=== PATIENT | female | born 2000 | race Caucasian/White ===

== ENCOUNTER 2023-11-07 13:56 | Outpatient (REF) | payer MEDICAID, SELFPAY ==
[2023-11-07 17:05] LABS: CT PCR NOT DETECTED (Not Detect.); NG PCR NOT DETECTED (Not Detect.)
== END 2023-11-07 13:57 | disposition home or self-care (01) ==
LOC: HO.CHCLNP 13:56
PROVIDERS: Visit Provider Advanced Practice Midwife
DX: Z11.3 Encounter for screening for infections with a predominantly sexual mode of transmission (principal)
CPT/HCPCS: 0353U

== ENCOUNTER 2024-01-03 16:39 | Emergency (ER) | payer MEDICAID, SELFPAY ==
--- NOTE | ~2024-01-03 | US_ITS ---
EXAMINATION: US OBSTETRICAL ULTRASOUND CLINICAL INFORMATION: Vaginal bleeding. Positive home test. COMPARISON: None available. LMP: 11/25/2023. Gestational age by maternal dates is 5 weeks 4 days. Estimated date of delivery by maternal dates is 08/31/2024. TECHNIQUE: Transabdominal and transvaginal imaging of pelvis is performed. FINDINGS: There is a single intrauterine gestational sac with visible yolk sac, embryo/fetus, and cardiac activity. There is no significant subchorionic hemorrhage or hematoma. HR: 80 beats per minute. CRL (crown rump length): 0.30 cm (6 weeks 0 days +/- 4 days). LUZ (estimated date of delivery): 08/28/2024 +/- 4 days. MATERNAL ADNEXA: The right maternal ovary measures 1.6 x 1.8 x 2.1 cm. No focal lesion The left maternal ovary measures 2.4 x 1.6 x 1.4 cm. No focal There is no significant maternal adnexal mass. No maternal pelvic ascites. Cervix is closed. US/US OB pelvic and transvaginal IMPRESSION: 1. Single intrauterine gestation with ultrasound gestational age of 6 weeks 0 days +/- 4 days. 2. Estimated date of delivery is 08/28/2024 +/- 4 days. 3. Low heart rate of 80 bpm. Recommend BUNGHOLE BORER correlation.
--- NOTE | ~2024-01-03 | US_ITS ---
EXAMINATION: US ABDOMEN LIMITED CLINICAL INFORMATION: Right upper quadrant pain.. COMPARISON: None available. TECHNIQUE: Real-time imaging of the right upper quadrant abdominal viscera. FINDINGS: PANCREAS: Normal. LIVER: Normal. The liver is normal in size. The liver contour is normal. Parenchymal echogenicity is normal. No focal hepatic lesion. There is no intrahepatic biliary duct dilatation seen. GALLBLADDER: Normal. The gallbladder is physiologically distended without evidence of stones, sludge, polyps, wall thickening or pericholecystic fluid. COMMON BILE DUCT: Normal in caliber measuring 0.2 cm in diameter. RIGHT KIDNEY: Normal. No hydronephrosis. No renal calculi or focal parenchymal lesions. The kidney measures 10.2 cm in maximum dimension. FREE FLUID: None. US/US abdomen limited IMPRESSION: Unremarkable limited right upper quadrant abdominal ultrasound.
[2024-01-03 16:49] VITALS: PULSE 106; RESP 16; TEMP 36.9; O2SAT 98; BMI 21.7
--- NOTE | 2024-01-03 16:52 | ED.GENADULT ---
HPI - General Adult General Chief complaint: Vaginal Bleeding Stated complaint: , bleeding Time Seen by Provider: 01/03/24 20:10 Related Data Allergies Allergy/AdvReac Type Severity Reaction Status Date / Time No Known Allergies Allergy Unverified 06/25/20 17:08 [No Known Allergies*] [facility] Social History Social History Advance Directives: No Advance Directives Information Provided: No Physical Exam ED Vital Signs: Vital Signs - 24 hr 01/03/24 16:49 Temperature 98.4 F Pulse Rate 106 H Respiratory Rate 16 Pulse Oximetry 98 Oxygen Delivery Method Room Air BMI result Body Mass Index 21.7 Course Course Course Narrative: This is an RME: Additional HPI, ROS, PE not included below will be deferred to primary provider. This is a 35-lbbh-mjl-female presenting to the emergency department with complaints of right upper quadrant pain since yesterday. Patient reports that the pain is intermittent. She also states that she took a at home test which was positive. She has never been before. No vaginal bleeding or suprapubic pain. She has tenderness palpation of the right upper quadrant. Last menstrual cycle was November 30, 2023. Endorsing diarrhea, no vomiting or nausea. No urinary symptoms. Further ER evaluation needed. Patient reports that she did have vaginal bleeding but now has since stopped. Plan: Labs, right upper quadrant ultrasound, UA, ultrasound OB Reevaluation(s) Reevaluation #1: pt left without completing treatment. Medical Decision Making Lab Data 01/03/24 17:30 01/03/24 17:30 Labs: Lab Results 01/03/24 Range/Units 17:30 WBC 5.2 (4.8-10.8) X10*3/uL RBC 4.60 (4.20-5.50) X10*6/uL Hgb 13.8 (12.0-16.0) g/dl Hct 41.1 (37.0-47.0) % MCV 89.3 (80.0-98.0) fL MCH 30.0 (27.0-33.0) pg MCHC 33.6 (31.0-35.0) g/dl RDW 11.8 (11.0-16.0) % Plt Count 216 (160-400) X10*3/uL MPV 10.4 (9.4-12.3) fL Immature Gran % (Auto) Cancelled Neut % (Auto) Cancelled Lymph % (Auto) Cancelled Garland % (Auto) Cancelled Eos % (Auto) Cancelled Baso % (Auto) Cancelled Lymph # (Auto) Cancelled Garland # (Auto) Cancelled Eos # (Auto) Cancelled Baso # (Auto) Cancelled Abs Immat Gran (auto) Cancelled Absolute Neuts (auto) Cancelled Absolute Nucleated RBC 0.000 (0.0-0.012) X10*3/uL Nucleated RBC % (auto) 0.0 (0.0-0.2) /100WBC Neutrophils % (Manual) 54 (45-73) % Band Neutrophils % 0 L (3-5) % Lymphocytes % (Manual) 30 (20-40) % Atypical Lymphs % (Man) 9 H (0-6) % Monocytes % (Manual) 2 (2-11) % Eosinophils % (Manual) 1 (0-4) % Metamyelocytes % 1 % Plasma Cell % (Manual) 3 % Abs Neuts (Manual) 2.8 (2.0-8.3) X10*3/uL Lymphocytes # (Manual) 1.6 (1.2-4.9) X10*3/uL Atyp Lymphs # (Manual) 0.5 x10*3/uL Monocytes # (Manual) 0.1 (0.1-1.2) X10*3/uL Eosinophils # (Manual) 0.1 (0.0-0.4) X10*3/uL Metamyelocytes # 0.1 X10*3/uL Plasma Cell # (Manual) 0.2 X10*3/uL Dohle Bodies PRESENT Platelet Estimate NORMAL (NORMAL) Plt Morphology Comment NORMAL RBC Morphology NORMAL Sodium 137 (135-145) mmol/L Potassium 3.7 (3.3-5.1) mmol/L Chloride 111 H (96-108) mmol/L Carbon Dioxide 18 L (22-29) mmol/L Anion Gap 12 (12-20) BUN 8 L (9-16) mg/dL Creatinine 0.59 (0.5-1.4) mg/dL Estim Creat Clear Calc 119.3 Estimated GFR > 60 Random Glucose 81 (60-115) mg/dL Calcium 9.4 (8.4-10.2) mg/dL Magnesium 1.9 (1.6-2.6) mg/dL Total Bilirubin 0.4 (0.0-1.0) mg/dL Direct Bilirubin 0.2 (0.0-0.5) mg/dL AST 18 (5-31) U/L ALT 10 (0-31) U/L Alkaline Phosphatase 58 (39-117) U/L Total Protein 7.7 (6.5-8.0) g/dL Albumin 4.5 (3.5-5.0) g/dL Lipase 23 (8-78) U/L Beta HCG, Quant 76898 mIU/mL Blood Type B Positive Discharge Plan Discharge Clinical Impression: Abdominal pain Patient Disposition: Left W/O Completing Treatment Discharge Date/Time: 01/03/24 20:41
[2024-01-03 17:39] LABS: Hematocrit 41.1 % (37.0-47.0); Hemoglobin 13.8 g/dl (12.0-16.0); Mean Corpuscular HGB Conc 33.6 g/dl (31.0-35.0); Mean Corpuscular Volume 89.3 fL (80.0-98.0); Mean Platelet Volume 10.4 fL (9.4-12.3); Platelet Count 216 X10*3/uL (160-400); Red Cell Distribution Width 11.8 % (11.0-16.0); White Blood Count 5.2 X10*3/uL (4.8-10.8)
[2024-01-03 18:23] LABS: Atypical Lymph Absolute Manual 0.5 x10*3/uL; Atypical Lymphs Percent Manual 9 % (0-6); Eosinophils Absolute Manual 0.1 X10*3/uL (0.0-0.4); Eosinophils Percent Manual 1 % (0-4); Lymphocytes Absolute Manual 1.6 X10*3/uL (1.2-4.9); Lymphocytes Percent Manual 30 % (20-40); Metamyelocytes Absolute 0.1 X10*3/uL; Metamyelocytes Percent 1 %; Monocytes Absolute Manual 0.1 X10*3/uL (0.1-1.2); Monocytes Percent Manual 2 % (2-11); Neutrophils Percent Manual 54 % (45-73); Plasma Cells % 3 %; Plasma Cells Absolute Manual 0.2 X10*3/uL
[2024-01-03 18:27] LABS: Band Neutrophils Percent 0 % (3-5); Dohle Bodies PRESENT; Neutrophils Absolute Manual 2.8 X10*3/uL (2.0-8.3); Platelet Estimate NORMAL (NORMAL); Platelet Morphology Comment NORMAL; RBC Morphology NORMAL
[2024-01-03 18:35] LABS: Alanine Aminotransferase 10 U/L (0-31); Albumin Level 4.5 g/dL (3.5-5.0); Alkaline Phosphatase 58 U/L (39-117); Anion Gap 12 (12-20); Aspartate Amino Transferase 18 U/L (5-31); Bilirubin Direct 0.2 mg/dL (0.0-0.5); Bilirubin Total 0.4 mg/dL (0.0-1.0); Blood Urea Nitrogen 8 mg/dL (9-16); Calcium 9.4 mg/dL (8.4-10.2); Carbon Dioxide 18 mmol/L (22-29); Chloride 111 mmol/L (96-108); Creatinine Clr Calc Pharmacy 119.3; Estimated Glomerular Filt Rate > 60; Glucose Random 81 mg/dL (60-115); Lipase 23 U/L (8-78); Magnesium 1.9 mg/dL (1.6-2.6); Potassium 3.7 mmol/L (3.3-5.1); Sodium 137 mmol/L (135-145); Total Protein 7.7 g/dL (6.5-8.0)
[2024-01-03 18:55] LABS: HCG Quantitative 15759 mIU/mL
== END 2024-01-03 20:41 | disposition left against medical advice (07) ==
PROVIDERS: Physician Assistant Medical; Emergency Provider Emergency Medicine; PCP Pediatrics
DX: O20.9 Hemorrhage in early pregnancy, unspecified (principal); Z3A.01 Less than 8 weeks gestation of pregnancy; R10.11 Right upper quadrant pain
CPT/HCPCS: 36415; 76705; 76801; 76817; 80048; 80076; 83690; 83735; 84702; 85007; 85027; 86900; 86901; 99281; 99284

== ENCOUNTER 2024-02-07 11:53 | Outpatient (REF) | payer MEDICAID, SELFPAY ==
--- NOTE | ~2024-02-07 | US_ITS ---
EXAMINATION: US OBSTETRICAL FOLLOW UP CLINICAL INFORMATION: with inconclusive viability. Low heart rate on previous ultrasound of 01/03/2024. COMPARISON: Ultrasound of 01/03/2020. TECHNIQUE: Real time transabdominal imaging with color and M-mode Doppler. FINDINGS: LMP: 11/25/2023. Gestational age by maternal dates is 10 weeks 4 days. Estimated date of delivery by maternal dates is 08/31/2024. Estimated date of delivery by initial dating ultrasound of 01/03/2024 is 08/28/2024 which would project current gestational age to be 11 weeks. There is a single intrauterine gestational sac with visible yolk sac, fetus, and cardiac activity. There is no significant subchorionic hemorrhage or hematoma. HR: 169 beats per minute. CRL (crown rump length): 3.71 cm (10 weeks 5 days +/- 4 days). LUZ (estimated date of delivery): 08/30/2024 +/- 4 days. MATERNAL ADNEXA: The right maternal ovary measures 2.2 x 1.1 x 1.1 cm. The ovary is unremarkable. The left maternal ovary measures 2.5 x 1.2 x 1.3 cm. The ovary is unremarkable. There is no significant maternal adnexal mass. No maternal pelvic ascites. US/US OB follow up IMPRESSION: 1. Single intrauterine gestation with ultrasound gestational age of 10 weeks 5 days +/- 4 days. 2. Estimated date of delivery is 08/30/2024 +/- 4 days. 3. No maternal adnexal mass or pelvic ascites.
== END 2024-02-07 11:54 | disposition home or self-care (01) ==
LOC: HO.US 11:53
PROVIDERS: Visit Provider Obstetrics & Gynecology
DX: O36.80X0 Pregnancy with inconclusive fetal viability, not applicable or unspecified (principal)
CPT/HCPCS: 76816

== ENCOUNTER 2024-02-08 12:39 | Outpatient (AMB) | payer MEDICAID, SELFPAY ==
[2024-02-08 12:50] VITALS: BP 106/70; BMI 21.6
--- NOTE | 2024-02-08 12:50 | A.OFFVIS_ITS ---
Vital Signs 02/08/24 12:50 Height 5 ft 2 in Weight 118 lb BMI 21.6 BP 106/70 Intake Visit Reasons: U/S results Power Saw Mechanic Required: No Accompanied by: Significant Other Allergies No Known Allergies [No Known Allergies*] Allergy (Verified 02/08/24 12:52) Is last menstrual period known: No Post menopausal: No Patient : Yes HPI Comments Details: Presenting for ER follow-up with no complaints, no pelvic cramping and or bleeding. Ultrasound done today, no report available yet, unofficial reading showed the following Intrauterine at 10 weeks and 4 days of gestation by LMP and 10 weeks and 5 days of gestation by ultrasound with gestational sac yolk sac present positive heart rate 169 beats per minute with no other abnormality On vitamin 1 tablet p.o. q.d. [facility] Family History (Updated 02/08/24 @ 12:54 by FLORA Alcantara) Maternal Grandmother Breast cancer Mother Uterine cancer Maternal Aunt Breast cancer Social History Patient : Yes Female Reproductive History Menstrual Age of Menarche: 13 Duration of menses: 6-7 days control method: none Total pregnancies: 0 Review of Systems Const All systems reviewed & are unremarkable except as noted in HPI and below Reports as per HPI and Reports no additional complaints GI Reports no additional complaints Reports no additional complaints Physical Exam Vital Signs: Last Vital Signs BP 106/70 02/08/24 12:50 BMI result Body Mass Index 21.6 Assessment & Plan Assessment & Plan (1) Early stage of : Code(s): Z34.90 - Encounter for supervision of normal , unspecified, unspecified trimester Category: Medical Plan: Discussed with the patient the finding on ultrasound showing, an IUP viable EDC 08/28 12/30. SAB warnings given to patient, she is to call or go to emergency room in case of pelvic cramping and or bleeding. vitamin 1 tablet p.o. q.d. sent to the patient's pharmacy Instructions given to patient to schedule initial OB visit kyle, the patient is interested in going to [facility] OBGYN practice. Medications: New no.144-folic acid 400 mcg 1 tab PO DAILY 180 days 180 tabs 1RF Coding Level of Care Code New Pt Level 3 (16529) Diagnoses Early stage of Z34.90
== END 2024-02-08 14:43 | disposition home or self-care (01) ==
PROVIDERS: PCP Pediatrics; Referring Provider Pediatrics; Visit Provider Obstetrics & Gynecology
DX: Z34.90 Encounter for supervision of normal pregnancy, unspecified, unspecified trimester (principal)
CPT/HCPCS: 99203

== ENCOUNTER → 2024-02-08 12:39 | Outpatient (BNVA) | payer MEDICAID, SELFPAY | PROVIDERS: PCP Pediatrics; Visit Provider Obstetrics & Gynecology | DX: Z34.91 Encounter for supervision of normal pregnancy, unspecified, first trimester (principal); Z3A.10 10 weeks gestation of pregnancy | CPT/HCPCS: 99202 ==

== ENCOUNTER 2024-09-09 19:04 | Outpatient (REF) | payer MEDICAID, SELFPAY ==
[2024-09-10 05:44] LABS: CT PCR NOT DETECTED (Not Detect.); NG PCR NOT DETECTED (Not Detect.)
== END 2024-09-09 19:05 | disposition home or self-care (01) ==
LOC: HO.HHCLNP 19:04
PROVIDERS: Visit Provider Nurse Practitioner Family
DX: Z20.2 Contact with and (suspected) exposure to infections with a predominantly sexual mode of transmission (principal)
CPT/HCPCS: 87491; 87591

== ENCOUNTER 2025-08-07 17:20 | Outpatient (REF) | payer MEDICAID, SELFPAY ==
--- OUTSIDE RECORDS SUMMARY | 2025-08-07 14:15 | XMS_ITS | Encounter Summary ---
Author Organization [employer] Address [address] [facility] [address] [place] [address] Care Team Providers Care Enterprise Applications Manager Name Role Phone Kristel Becerra MD Primary Care Pro vider Encounter Details Date Type Department Care Team (Latest Contact Info) Description 08/07/2025 2:15 PM EDT Procedure Visit [facility] [address] [place] [address] Meli Amin, LOYDA [address] [place] [address] Nexplanon insertion (Primary Dx); Encntr screen for infections w sexl mode of transmiss Social History Tobacco Use Types Packs/Day Years Used Date Smoking Tobacco: Never Passive Smoke Exposure: Never Smokeless Tobacco: Never Alcohol Use Standard Drinks/Week Comments Not Asked 0 (1 standard drink = 0.6 oz pur e alcohol) social Depression Answer Date Recorded Patient Health Questionnaire-9 Score 6 08/07/2025 Patient Health Questionnaire-9 Score 6 08/07/2025 Last PHQ-9: Questionnaire Data Not on file 1 Housing Stability Answer Date Recorded What is your housing situation today? I have tenzin conte 08/07/[address] you li ve. Do you have problems with any of the following? I am not sure 08/07/2025 Food Insecurity Answer Date Recorded Within the past 12 months, y ou worried that your food would run out before you got money to buy more: Never True 08/30/2024 Within the past 12 months,th e food you bought just didn't last and you didn't have enough money to get more: Never True Transportation Answer Date Recorded In the past 12 months, has l ack of transportation kept you from medical appts, meetings, work or from getting things needed for daily living? No 08/30/2024 Utilities Answer Date Recorded In the past 12 months, has t he electric, gas, oil or water company threatened to shut off services in your home? No 08/30/2024 Depression Answer Date Recorded Patient Health Questionnaire-2 Score 0 08/07/2025 Internet Access Answer Date Recorded Internet Access Q1 Yes 08/30/2024 Internet Access Q2 Not on file 08/30/2024 Comments Unknown Intention Date Recorded No desire to become (finding) 1 Sex and Gender Information Value Date Recorded Sex Assigned at Female 08/08/2022 10:21 AM EDT Legal Sex Female 10:21 AM EDT Gender Identity Female 08/08/2022 10:21 AM EDT Sexual Orientation Bisexual 02/24/2023 11 :01 AM EDT documented as of this encounter Last Filed Vital Signs Vital Sign Reading Time Taken Comments Blood Pressure 128/80 08/07/2025 2:36 PM EDT Pulse 82 08/07/2025 2:36 PM EDT Temperature - - Respiratory Rate 21 08/07/2025 2:36 PM EDT Oxygen Saturation 98% 08/07/2025 2:36 PM EDT Inhaled Oxygen Concentration - - Weight 67.8 kg (149 lb 6.4 oz) 08/07/2025 2:36 P M EDT Height 157.5 cm (5' 2 ) 08/07/2025 2:36 PM EDT Body Mass Index 27.33 08/07/2025 2:36 PM EDT documented in this encounter Functional Status * Over the past 2 weeks, how often have you been bothered by any of the following problems? Question Answer Date of Assessment Author Patient Health Questionnaire -2 Score 0 08/07/2025 3:05 PM EDT Kurt Weldon MA * Little interest or pleasure in doing things Answer Date of Assessment Author Not at all 08/07/2025 3:05 PM EDT Kurt Weldon MA * Feeling down, depressed, or hopeless Answer Date of Assessment Author Not at all 08/07/2025 3:05 PM EDT Kurt Weldon MA * Trouble falling or staying asleep, or sleeping too much Answer Date of Assessment Author Several days 08/07/2025 3:05 PM EDT Kurt Weldon MA * Feeling tired or having little energy Answer Date of Assessment Author More than half the days 08/07/2025 3:05 PM EDT Kurt Burkett MA * Poor appetite or overeating Answer Date of Assessment Author Several days 08/07/2025 3:05 PM EDT Kurt Weldon MA * Feeling bad about yourself - or that you are a failure or have let yourself or your family down Answer Date of Assessment Author Not at all 08/07/2025 3:05 PM EDT Kurt Weldon MA * Trouble concentrating on things, such as reading the newspaper or watching television Answer Date of Assessment Author Not at all 08/07/2025 3:05 PM LUIZAT Kurt Weldon MA * Moving or speaking so slowly that other people could have noticed? Or the opposite - being so fidgety or restless that you have been moving around a lot more than usual. Answer Date of Assessment Author More than half the days 08/07/2025 3:05 PM EDT Kurt uBrkett MA * Thoughts that you would be better off or hurting yourself in some way Answer Date of Assessment Author Not at all 08/07/2025 3:05 PM LUIZAT Kurt Weldon MA * Patient Health Questionnaire-9 Score Answer Date of Assessment Author 6 08/07/2025 3:05 PM LUIZAT Kurt Weldon MA * How difficult have these problems made it for you to do your work, take care of things at home, or get along with other people? Answer Date of Assessment Author Somewhat difficult 08/07/2025 3:05 PM Kurt Saez MA documented as of this encounter Progress Notes * Meli Amin CNM - 08/07/2025 2:15 PM EDTAssociated Order(s): Insertion/Removal of Contraceptive Capsule Subjective Patient ID: Esme Caldera is a 24 y.o. female who presents for Nexplanon insertion Previous Nexplanon removed last year. Would like new implant today. Not planning in the next year. LMP 08/06/2025. test negative today. No contraindications to insertion. SVB 08/2024, Meghana. Pap NIL, Gonorrhea/Chlamydia neg 2023. Co-parenting with Meghana's father, going okay. Living with her mom. Has services, declines today. Review of Systems Objective BP 128/80 (BP Location: Left arm, Patient Position: Sitting, BP Cuff Size: Adult) Pulse 82 Resp21 Ht 5' 2 (1.575 m) Wt 149 lb 6.4 oz (67.8 kg) LMP 08/06/2025 (Exact Date) SpO2 98% BMI27.33 kg/m?? Physical Exam Constitutional: Appearance: Normal appearance. Neurological: Mental Status: She is alert. Psychiatric: Mood and Affect: Mood normal. Behavior: Behavior normal. Assessment/Plan Diagnoses and all orders for this visit: Nexplanon insertion - POCT , urine manually resulted Reviewed normal side effects and danger signs. Report arm pain, redness, heavy bleeding. Leave pressure dressing on for 24h, Band-Aid for 3-5days. Expect irregular bleeding, or less likely, no bleeding at all. Report if implant not palpable. Return in 4wks for follow up. Advised to use additional control for 7 days. 100% condoms encouraged for STI prevention. Reviewed that Nexplanon is FDA approved for 3y, but research supports extended use up to 5 years Insertion/Removal of Contraceptive Capsule Date/Time: 08/07/2025 2:30 PM Performed by: Meli Amin CNM Authorized by: Meli Amin CNM Confirmed correct patient, procedure, site, and patient consented: Yes Participating Staff: Meli Amin CNM Consent: Consent obtained: Verbal and written Consent given by: Patient Procedural risks and benefits discussed: Yes Patient questions answered: yes Patient agrees, verbalizes understanding, and wants to proceed: yes Instructions and paperwork completed: yes Branscomb Protocol: Patient states understanding of procedure being performed: yes Site marked: yes Indication: Indication: insertion of non-biodegradable drug delivery implant Pre-procedure: Pre-procedure timeout performed: yes Prepped with: povidone-iodine Local anesthetic: 2ml 2% lidocaine. The site was cleaned and prepped in a sterile fashion: yes Procedure: Procedure: Insertion Left/right: Left Preloaded contraceptive capsule trocar was placed subdermally: yes Visualization of implant was obtained: yes Contraceptive capsule was inserted and trocar removed: yes Visualization of notch in stylet and palpation of device: yes Palpation confirms placement by provider and patient: yes Site was closed with steri-strips and pressure bandage applied: yes OSM: 1 each etonogestrel-eluting 68 mg Encntr screen for infections w sexl mode of transmiss - Chlamydia/N. Gonorrhoeae, PCR, Urine Agrees to urine Gonorrhea/Chlamydia today. documented in this encounter Plan of Treatment Upcoming Encounters Date Type Department Care Team (Late st Contact Info) Description 09/09/2025 2:00 PM EST Office Visit [facility] [address] [place] [address] [phone] Meli Amin CNM [address] [place] [phone] 09/17/2025 9:45 AM EST Office Visit [facility] [address] [place] [phone] Kristel Becerra MD [address] [place] [address] [phone] Scheduled Orders Name Type Priority Associated Diagnoses Orde r Schedule Chlamydia/N. Gonorrhoeae, PCR, Urine Lab Routine Encntr screen for infections w sexl mode of transmiss Ordered: 08/07/2025 documented as of this encounter Procedures Procedure Name Priority Date/Time Associated Diagnosis Comments POCT , URINE Routine 08/07/2025 2:41 PM EDT Nexplanon insertion NM INSERTION DRUG DELIVERY IMPLANT Routine 08/07/2025 2:30 PM EDT Nexplanon insertion documented in this encounter Results * POCT , urine manually resulted (08/07/2025 2:41 PM EDT) Preg Test, Ur Negative Negative, Indeterminate, None Detected, Invalid, Specimen unsatisfactory for evaluation, Weakly Positive, 2+ QC Media Lot # [id number] Lot# Expiration Date Urine 08/07/2025 2:41 PM EDT Meli Amin CNM POINT OF CARE TEST ENTER/ EDIT ORDERABLES Final Result * NM INSERTION DRUG DELIVERY IMPLANT (08/07/2025 2:30 PM EDT) Narrative Meli Amin CNM - 08/07/2025 2:30 PM EDT Meli Amin CNM 08/07/2025 3:02 PM Insertion/Removal of Contraceptive Capsule Date/Time: 08/07/2025 2:30 PM Performed by: Meli Amin CNM Authorized by: Meli Amin CNM Confirmed correct patient, procedure, site, and patient consented: Yes Participating Staff: Meli Amin CNM Consent: Consent obtained: Verbal and written Consent given by: Patient Procedural risks and benefits discussed: Yes Patient questions answered: yes Patient agrees, verbalizes understanding, and wants to proceed: yes Instructions and paperwork completed: yes Branscomb Protocol: Patient states understanding of procedure being performed: yes Site marked: yes Indication: Indication: insertion of non-biodegradable drug delivery implant Pre-procedure: Pre-procedure timeout performed: yes Prepped with: povidone-iodine Local anesthetic: 2ml 2% lidocaine. The site was cleaned and prepped in a sterile fashion: yes Procedure: Procedure: Insertion Left/right: Left Preloaded contraceptive capsule trocar was placed subdermally: yes Visualization of implant was obtained: yes Contraceptive capsule was inserted and trocar removed: yes Visualization of notch in stylet and palpation of device: yes Palpation confirms placement by provider and patient: yes Site was closed with steri-strips and pressure bandage applied: yes OSM: 1 each etonogestrel-eluting 68 mg Meli Amin CNM IN CLINIC/BEDSIDE ORDERAB LES Final Result documented in this encounter Visit Diagnoses Diagnosis Nexplanon insertion- Primary Encntr screen for infections w sexl mode of transmiss documented in this encounter Administered Medications Inactive Administered Medications - up to 3 most recent administrations Medication Order MAR Action Action Date Dose Rate Site etonogestrel-eluting 68 mg contraceptive implant 1 each 1 each, Once PRN Procedure, Starting on Loni 08/07/25 at 1430, For 1 doseIndications:Nexplanon insertion Given 08/07/2025 2:30 PM EDT 1 each documented in this encounter Additional Health Concerns Assessment Noted Time PHQ-9 Depression Total Score: 6 08/07/20 25 3:05 PM EDT documented as of this encounter Care Teams Enterprise Applications Manager Relationship Specialty Start Date End Date Kristel Becerra MD [address] [place] [phone] PCP - General Internal Medicine 11/03/23 documented as of this encounter
--- OUTSIDE RECORDS SUMMARY | 2025-08-07 18:38 | XMS_ITS | Encounter Summary ---
Author Organization [employer] Address [address] [facility] [address] [place] [address] Care Team Providers Care Hydro Station Supervisor Name Role Phone Kristel Becerra MD Primary Care Pro vider Reason for Visit * Reason Onset Date Comments chart prep 08/06/2025 Encounter Details Date Type Department Care Team ([facility] st Contact Info) Description 08/06/2025 Telephone [facility] [address] [place] [address] Meli Amin CNM [address] [place] [phone] chart prep Social History Tobacco Use Types Packs/Day Years [...] Q2 Not on file 08/30/2024 Comments Unknown Sex and Gender Information Value Date Recorded Sex Assigned at Female 08/08/2022 10:21 AM EDT Legal Sex Female 10:21 AM EDT Gender Identity Female 08/08/2022 10:21 AM EDT Sexual Orientation Bisexual 02/24/2023 11 :01 AM EDT documented as of this encounter Miscellaneous Notes * Telephone Encounter - Sherrie Reyna MA - 08/06/2025 2:15 PM EDT ..Chart Prep Labs: not applicable Images: not applicable Vaccines due: Covid Due, PCV20 Due, and Flu Due Referrals: Not Applicable Screenings: LMP Overdue care gaps: Sbirt, SDOH, PHQ9, and Oral Health documented in this encounter Plan of Treatment Upcoming Encounters Date Type Department Care Team (Late st Contact Info) Description 09/09/2025 2:00 PM EST Office Visit [facility] [address] [place] [phone] Meli Amin CNM [address] [place] [phone] 09/17/2025 9:45 AM EST Office Visit [facility] [address] [place] [address] [phone] Kristel Becerra MD [address] [place] [phone] documented as of this encounter Visit Diagnoses Not on filedocumented in this encounter Additional Health Concerns Assessment Noted Time PHQ-9 Depression Total Score: 22 025 10:35 AM EDT documented as of this encounter Care Teams Hydro Station Supervisor Relationship Specialty Start Date End Date Kristel Becerra MD [address] [place] [phone] PCP - General Internal Medicine 11/03/23 documented as of this encounter
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
--- OUTSIDE RECORDS SUMMARY | 2025-08-07 18:39 | XMS_ITS | Encounter Summary ---
Author Organization [employer] Address [address] [facility] [address]t [place] [address] Care Team Providers Care Commercial Kitchen Service Technician Name Role Phone Kristel Becerra MD Primary Care Pro vider Encounter Details Date Type Department Care Team (Latest Contact Info) Description 08/07/2025 Travel Social History Tobacco Use Types Packs/Day Years [...] AM EDT documented as of this encounter Functional Status * Over the [...] 3:05 PM LUIZAT Kurt Weldon MA * Trouble concentrating on [...] 3:05 PM EDT Kurt Burkett MA * Thoughts that you would be better off or hurting yourself in some way Answer Date of Assessment Author Not at all 08/07/2025 3:05 PM EDT Kurt Weldon MA * Patient Health Questionnaire-9 Score Answer Date of Assessment Author 6 08/07/2025 3:05 PM EDT Kurt Weldon MA * How difficult have these problems made it for you to do your work, take care of things at home, or get along with other people? Answer Date of Assessment Author Somewhat difficult 08/07/2025 3:05 PM EDT Kurt Morris MA documented as of this encounter Plan of Treatment Upcoming Encounters Date Type Department Care Team (Late st Contact Info) Description 09/09/2025 2:00 PM EST Office Visit [facility] [address] [place] [phone] Meli Amin CNM [address] [place] [phone] 09/17/2025 9:45 AM EST Office Visit [address] [address] Kristel Becerra MD [address] [place] [phone] documented as of this encounter Visit Diagnoses Not on filedocumented in this encounter Additional Health Concerns Assessment Noted Time PHQ-9 Depression Total Score: 6 08/07/20 25 3:05 PM EDT documented as of this encounter Care Teams Commercial Kitchen Service Technician Relationship Specialty Start Date End Date Kristel Becerra MD [address] [place] [phone] PCP - General Internal Medicine 11/03/23 documented as of this encounter
--- OUTSIDE RECORDS SUMMARY | 2025-08-07 18:39 | XMS_ITS | Encounter Summary ---
Author Organization [employer] Address [address] [facility] 7t [place] [address] Care Team Providers Care Sharples Machine Operator Name Role Phone Brittni Cooper MD Primary Care Provider [phone] Kristel Becerra MD Primary Care Pro vider Reason for Visit * Reason Onset Date Comments Nurse Triage 10/18/2023 Encounter Details Date Type Department Care Team ([facility] st Contact Info) Description 10/18/2023 Telephone [facility] [address], [place] [phone] Brittni Cooper MD [address] [place] [address] Nurse Triage Social History Tobacco Use Types Packs/Day Years Used Date Smoking Tobacco: Never Passive Smoke Exposure: Never Smokeless Tobacco: Never Alcohol Use Standard Drinks/Week Comments Not Asked 0 (1 standard drink = 0.6 oz pur e alcohol) social Depression Answer Date Recorded Patient Health Questionnaire-9 Score 5 02/24/2023 Housing Stability Answer Date Recorded What is your housing situation today? I have tenzin conte 08/14/[address] you li ve. Do you have problems with any of the following? None of the above 08/14/2023 Food Insecurity Answer Date Recorded Within the past 12 months, y ou worried that your food would run out before you got money to buy more: Sometimes True 2022 Within the past 12 months,th e food you bought just didn't last and you didn't have enough money to get more: Sometimes True 08/14/2023 Transportation Answer Date Recorded In the past 12 months, has l ack of transportation kept you from medical appts, meetings, work or from getting things needed for daily living? No 08/14/2023 Utilities Answer Date Recorded In the past 12 months, has t he electric, gas, oil or water company threatened to shut off services in your home? No 08/14/2023 Depression Answer Date Recorded Patient Health Questionnaire-2 Score 1 02/24/2023 Comments No Sex and Gender Information Value Date Recorded Sex Assigned at Female 08/08/2022 10:21 AM EDT Legal Sex Female 10:21 AM EDT Gender Identity Female 08/08/2022 10:21 AM EDT Sexual Orientation Bisexual 02/24/2023 11 :01 AM EDT documented as of this encounter Miscellaneous Notes * Telephone Encounter - Jody Lopez RN - 10/18/2023 3:39 PM EST TC placed to patient at number provided: [phone]. Patient picked up. Patient stated she has had some vaginal bleeding consistently for the last two months, but it is much worse today. She is having heavy bleeding, cramping, and 6/10 pain today. She denies other symptoms. Cramping and pain diffuse in lower abdomen. Advised patient to go to the ED or WIC immediately. Patient does not want to go to the ED. Patient agreeable to go to the [place] and fairly sure she will go there this afternoon/evening. Helene Amin has a one-hour appointment open tomorrow morning, 10/18/23, if useful for this patient. For now, scheduled a follow up visit with Helene Amin for next week. Routing to PCP and WIC nurses so they are aware. * Telephone Encounter - Sepideh Gallardo RN - 10/18/2023 3:19 PM EST Triage call attempted x2 with [place] business area manager [place] [id number] Pt didn't answer left voice message to call [facility] [phone] * Telephone Encounter - Teofilo Dsouza - 10/18/2023 2:47 PM EST Symptom: Vaginal Bleeding - Not Outcome: Talk to a nurse or provider within 15 minutes Reason: Heavy bleeding The caller accepted this outcome Pt is on nexplanon Please contact pt @ [phone] documented in this encounter Plan of Treatment Upcoming Encounters Date Type Department Care Team (Late st Contact Info) Description 09/09/2025 2:00 PM EST Office Visit [address] [phone] Meli Amin CNM [address] [place] [address] 09/17/2025 9:45 AM EST Office Visit [address] [address] Kristel Becerra MD [address] [place] [phone] documented as of this encounter Visit Diagnoses Not on filedocumented in this encounter Additional Health Concerns Assessment Noted Time PHQ-9 Depression Total Score: 5 02/25/20 23 10:31 AM EDT documented as of this encounter Care Teams Sharples Machine Operator Relationship Specialty Start Date End Date Brittni Cooper MD [address] [place] [phone] PCP - General Family Medicine 07/28/22 11/02/23 Kristel Becerra MD [address] [place] [address] [phone] PCP - General Internal Medicine 11/03/23 documented as of this encounter
--- OUTSIDE RECORDS SUMMARY | 2025-08-07 18:39 | XMS_ITS | Encounter Summary ---
Author Organization [employer] Address [address] [place] [address] 7 [place] [address] Care Team Providers Care Youtuber Name Role Phone Kristel Becerra MD Primary Care Pro vider Reason for Visit * Reason Onset Date Comments Medication Question 04/14/2025 Encounter Details Date Type Department Care Team ([facility] st Contact Info) Description 04/14/2025 Telephone [facility] [address] [place] [phone] Kristel Becerra MD [address] [place] [address] Medication Question Social History Tobacco Use Types Packs/Day Years Used Date Smoking Tobacco: Never Passive Smoke Exposure: Never Smokeless Tobacco: Never Alcohol Use Standard Drinks/Week Comments Not Asked 0 (1 standard drink = 0.6 oz pur e alcohol) social Depression Answer Date Recorded Patient Health Questionnaire-9 Score 01/21/2025 Patient Health Questionnaire-9 Score 01/21/2025 Last PHQ-9: Questionnaire Data Not on file 0 01/21/2025 Housing Stability Answer Date Recorded What is your housing situation today? I have tenzinbeth conte 08/30/[address] you li ve. Do you have problems with any of the following? None of the above 08/30/2024 Food Insecurity Answer Date Recorded Within the [...] Answer Date Recorded Patient Health Questionnaire-2 Score 4 01/21/2025 Internet Access Answer Date Recorded Internet Access Q1 Yes 08/30/2024 Internet Access Q2 Not on file 08/30/2024 Comments No Sex and Gender Information Value Date Recorded Sex Assigned at Female 08/08/2022 10:21 AM EDT Legal Sex Female 10:21 AM EDT Gender Identity Female 08/08/2022 10:21 AM EDT Sexual Orientation Bisexual 02/24/2023 11 :01 AM EDT documented as of this encounter Miscellaneous Notes * Telephone Encounter - Soto Baltazar - 04/14/2025 12:13 PM EDT Tc from pt reporting that she Asked for sleeping medications and never got a call back. Contact pt at [phone] documented in this encounter Plan of Treatment Upcoming Encounters Date Type Department Care Team (Late st Contact Info) Description 09/09/2025 2:00 PM EST Office Visit [facility] [address] [place] [phone] Meli Amin CNM [address] [place] [phone] 09/17/2025 9:45 AM EST Office Visit [facility] [address] [place] [phone] Kristel Becerra MD [address] [place] [phone] documented as of this encounter Visit Diagnoses Not on filedocumented in this encounter Additional Health Concerns Assessment Noted Time PHQ-9 Depression Total Score: 22 025 10:35 AM EDT documented as of this encounter Care Teams Youtuber Relationship Specialty Start Date End Date Kristel Becerra MD [address] [place] [phone] PCP - General Internal Medicine 11/03/23 documented as of this encounter
[2025-08-08 01:17] LABS: CT PCR Urine NOT DETECTED (Not Detect.); NG PCR Urine NOT DETECTED (Not Detect.)
== END 2025-08-07 17:21 | disposition home or self-care (01) ==
LOC: HO.LNP 17:20
PROVIDERS: Visit Provider Advanced Practice Midwife
DX: Z20.2 Contact with and (suspected) exposure to infections with a predominantly sexual mode of transmission (principal)
CPT/HCPCS: 87491; 87591